=== PATIENT | male | born 1965 | race Caucasian/White ===

== ENCOUNTER 2019-05-30 21:50 | Emergency (ER) | payer OTHER ==
[~2019-05-30] VITALS: Ht 180.3 cm; Wt 90.7 kg
[2019-05-30] MEDS ORDERED: MUSCLE RELAXER (22:07)
[2019-05-30] MEDS ORDERED: BLOOD PRESSURE PILL (22:07)
[2019-05-30] MEDS ORDERED: MAALOX ADVANCE355 ML PO (22:08)
[2019-05-30 22:57] LABS: ABSOLUTE BASOPHILS 0.1 thou/uL (0.0-0.2); ABSOLUTE EOSINOPHILS 0.3 thou/uL (0.0-0.7); ABSOLUTE LYMPHOCYTES 1.8 thou/uL (0.8-5.3); ABSOLUTE NEUTROPHILS 5.7 thou/uL (1.6-8.1); BASOPHILS 0.9 %; HEMATOCRIT 51.9 % (42.0-52.0); HEMOGLOBIN 18.4 gm/dL (14.0-18.0); LYMPHOCYTES 20.2 %; MCH 34.1 pg (26.0-34.0); MCHC 35.4 g/dL (28.0-37.0); MCV 96.3 fL (80.0-100.0); MONOCYTES 10.8 %; MPV 7.4 fl. (7.2-11.1); NUCLEATED RBCS 0 /100WBC; PLATELET COUNT* 256 thou/uL (150-400); POLYS 64.1 %; RBC 5.39 mil/uL (4.50-6.00); RDW-CV 13.1 % (10.5-14.5); WBC 8.8 thou/uL (4.0-11.0)
[2019-05-30 23:11] LABS: ANION GAP 10 mmol/L (7-16); BUN 14 mg/dL (7-18); CALCIUM 7.9 mg/dL (8.5-10.1); CHLORIDE 101 mmol/L (98-107); CO2 25 mmol/L (21-32); CREATININE 1.2 mg/dL (0.6-1.3); GLUCOSE 123 mg/dL (70-99); POTASSIUM 3.8 mmol/L (3.5-5.1); SODIUM 136 mmol/L (136-145)
[2019-05-30 23:56] LABS: LIPASE 163 U/L (73-393); SGOT 31 U/L (15-37)
[2019-05-30 23:57] LABS: ALBUMIN 4.1 g/dL (3.4-5.0); ALKALINE PHOSPHATASE 78 U/L (46-116); SGPT 39 U/L (30-65); TOTAL PROTEIN 6.9 g/dL (6.4-8.2); TROPONIN-I LEVEL <0.06 ng/mL (<0.06)
[2019-05-31] MEDS ORDERED: PEPCID20 MG PO (01:10)
[2019-05-31] MEDS ORDERED: CARAFATE 1 GM TA1 GM PO (01:10)
[2019-05-31 01:25] VITALS: BP 113/79
--- NOTE | 2019-05-31 14:48 | EKG ---
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
== END 2019-05-31 01:25 | disposition home or self-care (01) ==
LOC: M.ERS 21:50
PROVIDERS: Emergency Medicine
DX: K22.4 Dyskinesia of esophagus (principal); R14.1 Gas pain; I10 Essential (primary) hypertension